=== PATIENT | male | born 1940 ===

== ENCOUNTER 2021-02-13 14:42 | Outpatient (REF) | payer MEDICARE, SELFPAY ==
[2021-02-13 16:17] LABS: Abs Immature Grans 0.06 10^3/uL (0.0-0.06); Absolute Basophil Count 0.06 10^3/uL (0.0-0.2); Absolute Lymphocyte Count 1.71 10^3/uL (1.2-3.4); Absolute Monocyte Count 1.04 10^3/uL (0.1-0.8); Absolute Neutrophil Count 6.58 10^3/uL (1.2-6.7); Basophils % 0.6; Eosinophils % 3.1; HGB 12.8 g/dL (13.5-17.5); Immature Grans % 0.6; Lymphocytes % 17.5; MCHC 33.7 % (32.0-36.0); MCV 86.2 fL (80-95); MPV 9.9 fL (8.0-11.0); Monocytes % 10.7; Neutrophils % 67.5; Nucleated RBC 0 %; Platelet Count 277 10^3/uL (130-400); RBC 4.41 10^6/uL (4.36-5.78); RDW 13.2 % (11.8-14.1); RDW-SD 41.6 fL; WBC 9.75 10^3/uL (4.4-10.8)
[2021-02-13 16:29] LABS: ALT 27 U/L (16-63); AST 24 U/L (15-37); Albumin 3.9 g/dL (3.4-5.0); Alkaline Phosphatase 125 U/L (46-116); Bilirubin, Direct 0.1 mg/dL (0.0-0.2); Bilirubin, Total 0.4 mg/dL (0.2-1.0); Total Protein 6.7 g/dL (6.4-8.2)
[2021-02-14 09:22] LABS: IgA 146 mg/dL (85-499); IgG 564 mg/dL (610-1,616); IgM 51 mg/dL (35-242)
[2021-02-14 09:59] LABS: IgE 39 IU/mL (<158)
== END 2021-02-13 14:43 | disposition home or self-care (01) ==
LOC: LBN 14:42
PROVIDERS: PCP Physician Assistant; Visit Provider Student in an Organized Health Care Education/Training Program
DX: E11.9 Type 2 diabetes mellitus without complications (principal); J84.112 Idiopathic pulmonary fibrosis; J47.9 Bronchiectasis, uncomplicated
CPT/HCPCS: 80076; 82784; 82785; 82787; 85025